=== PATIENT | female | born 1950 | race Caucasian/White ===

== ENCOUNTER 2017-10-18 06:22 | Emergency (ER) | payer MEDICARE, OTHER ==
[~2017-10-18] VITALS: Ht 175.3 cm; Wt 55.2 kg
[~2017-10-18 06:22] MED LIST: ALPR-475 PO; AMAN50SY PO; CARB1TAB2 PO; CARB1TAB3 PO; HYDR-3240 PO; ROPI2TAB PO; ROPI2TAB4 PO; ROPI5TAB2 PO
[2017-10-18 06:33] VITALS: BP 148/87
[2017-10-18] MEDS ORDERED: LORazepam 2 MG/ML, 1ML ONE (06:43)
[2017-10-18] MEDS ORDERED: LORazepam 2 MG/ML, 1ML IVPush ONE (07:00)
[2017-10-18] MEDS ORDERED: HYDR25CA94 PO (07:08)
[2017-10-18] MEDS ORDERED: MIRT30TA4 PO (07:08)
[2017-10-18] MEDS ORDERED: BUSP10TA PO (07:08)
== END 2017-10-18 09:56 | disposition home or self-care (01) ==
LOC: ED 06:51
DX: F41.1 Generalized anxiety disorder (principal); G20 Parkinson's disease
CPT/HCPCS: 99283

== ENCOUNTER 2018-01-22 00:59 | Emergency (ER) | payer MEDICARE, OTHER ==
[~2018-01-22] VITALS: Ht 165.1 cm; Wt 47.7 kg
[~2018-01-22 00:59] MED LIST changes: +BUSP10TA PO; +HYDR25CA94 PO; +MIRT30TA4 PO
[2018-01-22 01:01] VITALS: BP 133/82
[2018-01-22] MEDS ORDERED: LIDOCAINE 2%, 20ML SQ ONE (02:00)
[2018-01-22] MEDS ORDERED: LIDOCAINE-MPF 2% ,5ML ONE (02:07)
[2018-01-22] MEDS ORDERED: BACITRACIN ZINC OINT 500U/GM, 0.9 GM ONE (02:57)
== END 2018-01-22 03:27 | disposition home or self-care (01) ==
LOC: ED 03:19
DX: S06.0X0A Concussion without loss of consciousness, initial encounter (principal); S01.112A Laceration without foreign body of left eyelid and periocular area, initial encounter; F02.80 Dementia in other diseases classified elsewhere, unspecified severity, without behavioral disturbance, psychotic disturbance, mood disturbance, and anxiety; G20 Parkinson's disease; W01.0XXA Fall on same level from slipping, tripping and stumbling without subsequent striking against object, initial encounter; Y93.89 Activity, other specified; Y92.89 Other specified places as the place of occurrence of the external cause; Y99.8 Other external cause status
CPT/HCPCS: 12001; 12011; 70450; 99284

== ENCOUNTER 2019-12-16 07:37 | Day surgery (SDC) | payer MEDICARE, OTHER ==
[2019-12-15 11:27] LABS: BASOPHILS # (AUTO) 0.01 x10^3/uL (0-0.1); BASOPHILS % (AUTO) 0 % (0-1); EOSINOPHILS # (AUTO) 0.01 x10^3/uL (0-0.4); EOSINOPHILS % (AUTO) 0 % (1-7); LYMPHOCYTES # (AUTO) 0.52 x10^3/uL (1-3.4); LYMPHOCYTES % (AUTO) 9 % (22-44); MD NO; MEAN CORPUSCULAR HEMOGLOBIN 31.4 pg (27.0-34.8); MEAN CORPUSCULAR VOLUME 95.1 fL (80-100); MEAN PLATELET VOLUME 7.5 fL (7.4-10.4); MONOCYTES # (AUTO) 0.81 x10^3/uL (0.2-0.8); MONOCYTES % (AUTO) 15 % (2-9); NEUTROPHILS # (AUTO) 4.22 x10^3/uL (1.8-6.8); NEUTROPHILS % (AUTO) 76 % (42-75); PLATELET COUNT 342 x10^3/uL (130-400); RED BLOOD COUNT 3.97 x10^6/uL (3.82-5.3)
[2019-12-15 11:32] LABS: PROTHROMBIN TIME 10.6 Seconds (9.6-11.5)
[2019-12-15 11:36] LABS: ANION GAP 5 mmol/L (5-15); CALCIUM 8.5 mg/dL (8.5-10.1); CHLORIDE 110 mmol/L (98-107); CREATININE 0.84 mg/dL (0.55-1.02)
[~2019-12-16] VITALS: Ht 170.2 cm; Wt 53.6 kg
[~2019-12-16 07:37] MED LIST changes: -ALPR-475 PO; +ALPR0.5T7 PO; +BACITRACIN 50,000 UNIT ONE; +BACITRACIN OINT 500U/GM, 15 GM ONE; +BUPIVACAINE/PF 0.5% ONE; +EPINEPHRINE 1 MG/ML, 1ML ONE; +IBUP-1623 PO; +LORA-445 PO; +MULT-252 PO; -ROPI2TAB4 PO; +ROPI2TAB8 PO; -ROPI5TAB2 PO; +ROPI5TAB4 PO; +Vitamin D PO; +[UNRECOGNIZED DRUG - OTHER]; +[UNRECOGNIZED DRUG - OTHER]; +doxepin PO; +risperidone PO; +tylenol PO
[2019-12-16] MEDS ORDERED: FENTANYL PF 100 MCG/2ML ONE (07:58)
[2019-12-16 08:04] VITALS: BP 110/76
[2019-12-16] MEDS ORDERED: LACTATED RINGERS 1,000 ML IV SCH (08:12)
[2019-12-16] MEDS ORDERED: LIDOCAINE PF 2%, 5ML ONE (08:46)
[2019-12-16] MEDS ORDERED: EPHEDRINE 50 MG/ML, 1ML IM PRN (09:00)
[2019-12-16] MEDS ORDERED: HYDROmorphone 2 MG/ML, 1ML IVPush PRN (09:00)
[2019-12-16] MEDS ORDERED: FENTANYL PF 100 MCG/2ML IV PRN (09:00)
[2019-12-16] MEDS ORDERED: PROMETHAZINE 25 MG SUPP PR PRN (09:00)
[2019-12-16] MEDS ORDERED: ACETAMINOPHEN 325 MG TABLET PO PRN (09:00)
[2019-12-16] MEDS ORDERED: PROMETHAZINE 25 MG/ML, 1ML IV PRN (09:00)
[2019-12-16] MEDS ORDERED: OXYcodone 5 MG/5 ML ORAL.SOL UDC PO PRN (09:00)
[2019-12-16] MEDS ORDERED: ONDANSETRON 2MG/ML, 2ML IV PRN (09:00)
[2019-12-16] MEDS ORDERED: ONDANSETRON ODT 8 MG PO PRN (09:00)
[2019-12-16] MEDS ORDERED: CEFAZOLIN 1,000 MG ONE (09:07)
[2019-12-16] MEDS ORDERED: PROPOFOL 10 MG/ML, 20ML ONE (09:07)
[2019-12-16] MEDS ORDERED: DEXAMETHASONE 4 MG/ML, 1ML ONE (09:07)
[2019-12-16] MEDS ORDERED: ONDANSETRON 2MG/ML, 2ML ONE (09:07)
== END 2019-12-16 11:00 | disposition home or self-care (01) ==
LOC: OUT 07:37
PROVIDERS: ATTEND Neurological Surgery
DX: Z45.49 Encounter for adjustment and management of other implanted nervous system device (principal); G20 Parkinson's disease; I10 Essential (primary) hypertension; F41.9 Anxiety disorder, unspecified; F32.9 Major depressive disorder, single episode, unspecified; K21.9 Gastro-esophageal reflux disease without esophagitis; Z87.39 Personal history of other diseases of the musculoskeletal system and connective tissue; Z90.710 Acquired absence of both cervix and uterus; Z79.01 Long term (current) use of anticoagulants
CPT/HCPCS: 36415; 61885; 80048; 85025; 85610; 85730; 86850; 86900; 93005; C1767; J0171; J0690; J1100; J2405; J2704; J3010; J7120